=== PATIENT | female | born 1965 | race Caucasian/White ===

== ENCOUNTER 2025-06-28 10:52 | Outpatient (AMB) | payer OTHER, SELFPAY ==
--- NOTE | 2025-06-28 10:54 | MHC.OFFVIS ---
Intake Visit Reasons: 6 Months Allergies No Known Allergies Allergy (Verified 06/01/25 11:53) HPI Comments Details: She woke up with left lower back pain into L hip pain in early 06/2025. No specific trigger. Had some trouble walking for about 1 week, but has gotten better. Stopped using scapula braces, taping instead. Doing?stretches and exercises at home, using 2-pound free weights. Popping in left shoulder blade when doing exercises is better. Gabapentin 800mg three times a day and oxycodone as needed help. Sleep is a bit better. Has to sleep on hard surface with pillows in certain positions. Had consultation with surgeon and was told there was nothing that could be done. Previously completed PT. Had multiple intercostal blocks and trigger points in left subscapular and suprascapular areas every 3 months without relief, shots aggravate pain. Tried cross tape across scapulae, chest brace, and multiple other braces. Hx of ovarian cancer s/p hysterectomy in 11/2017 with some metastatic lesions involving seeding of the peritoneum in the left upper quadrant between the diaphragm, liver, and spleen. In 08/2020, she had partial hepatectomy and partial resection of this tumor. States she has been in remission since 08/2020. Has had a few bouts of chemotherapy. Has had persistent left scapular and periscapular pain that radiates into left rib cage at T5-6 level since 2018 hysterectomy, liver scraping, and removal of liver mets. She notes that her shoulder blades stick out, particularly on the left. Has some pain in the right lumbar muscles. MRI C-spine on 04/05/2020 and again on 01/18/2021 showed minimal degenerative disc disease at C4-5. MRI thoracic spine on 04/18/2020 showed mild degenerative disc disease at T3-T5. Has tried amitriptyline 10mg, gabapentin 300mg TID, methocarbamol 500mg, cyclobenzaprine 10mg, nabumetone 75mg, baclofen 10mg TID. She takes alprazolam 0.5mg TID for anxiety. Had epidural injection at C6-7, but did not have any lasting relief. Cancer surveillance is good so far. Last CT scan in 12/2023 was negative. [facility] Medical History (Updated 06/28/25 @ 11:51 by Brigitte Rondinelli, GRINDER SET UP OPERATOR) Malignant neoplasm of unspecified ovary Nerve palsy Review of Systems Const Denies chills, Denies daytime sleepiness, Reports difficulty sleeping, Denies fatigue, Denies fever(s), Denies frequent falls, Denies headache(s), Denies increased appetite, Denies poor appetite, Denies snoring, Denies weakness, Denies weight gain and Denies weight loss Eyes Denies loss of vision ENT Denies vertigo, Denies dizziness, Denies headache(s) and Reports neck pain Card Denies chest pain at rest, Denies chest pain with activity, Denies syncope, Denies leg edema, Denies palpitations, Denies dyspnea and Denies dyspnea on exertion Resp Denies cough, Denies dyspnea, Denies dyspnea on exertion and Denies snoring GI Denies abdominal pain, Denies constipation, Denies heartburn, Denies diarrhea and Denies nausea Denies urinary frequency, Denies urinary incontinence and Denies urinary urgency Musc Denies abnormal gait, Reports back pain, Reports myalgias, Reports arthralgias, Reports neck pain, Denies numbness and Denies tingling Neuro Denies abnormal gait, Denies vertigo, Denies dizziness, Denies syncope, Denies frequent falls, Denies headache(s), Denies lack of coordination, Denies loss of vision, Denies memory loss, Denies numbness, Denies Other visual disturbances, Denies restless legs, Denies seizure-like activity, Denies tingling, Denies paresthesias, Denies tremor(s) and Denies weakness Psych Reports anxiety, Reports depression, Denies auditory hallucinations, Denies memory loss and Denies visual hallucinations Endo Denies fatigue and Denies palpitations Physical Exam Const Other: General Appearance:? normal, in no acute distress. Heart:? S1, S2 normal, no murmurs. Lungs:? clear anteriorly and posteriorly. Musculoskeletal:? normal. Extremities:? no edema. Psych:? alert, oriented, cognitive function intact, cooperative with exam. Neuro Other: Abnormal Neurological Findings:?Winging of scapula bilaterally, left more than right. Weakness of serratus ant. Mental Status: alert and oriented X 3. Normal attention, orientation, memory, and affect. Cranial Nerves: Pupils are equal, round, and reactive to light. External ocular muscles are intact. Visual mireles are full, no ptosis. Face is symmetrical, no facial weakness or droop. Facial sensations are normal. Tongue protrudes in midline. Palate elevates symmetrically. Shoulder shrugging is normal Motor Examination: As above, otherwise normal muscle tone, bulk and strength. No atrophy or fasciculations. No drift of the extended upper extremities. DTR 2+. Plantars are flexor. Sensory Exam: Normal light touch, temperature, pinprick, vibration, and joint-position sensations. Rhomberg sign is absent. Coordination: No ataxia. No titubation. Gait Exam: Within normal limits. Cerebellar Signs: Bmshar-wh-expn and lhmt-wf-wjdy is normal. No dysdiadochokinesia. Extrapyramidal System: No tremor, rigidity with normal facial expressions. No bradykinesia. No bradyphrenia. Normal arm swing and posture. No propulsion or retropulsion. Speech: Normal. Results Reviewed Results Reviewed: 09/09/23 NCV/EMG UE Normal motor and sensory nerve conduction velocities in the upper extremities. Normal EMG in the left C5-T1 innervated muscles. 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 Continue oxycodone 10mg 1/2-1 tablet as needed q12h for pain #60 for 30 days (2) Low back pain: Code(s): M54.50 - Low back pain, unspecified Category: Medical Qualifiers: Chronicity: acute Back pain laterality: left Sciatica presence: without sciatica Qualified Code(s): M54.50 - Low back pain, unspecified Plan: Lumbar spine XR ordered. Orders: Orders XR lumbar spine 2-3V Today M54.50 - Low back pain, unspecified Medications: New gabapentin 800 mg PO TID 90 tabs 5RF 30 days Refilled oxycodone 0.5-1 tablet orally every 12 hours PRN; Partial Fill upon patient request. 60 tabs 0RF pain 30 days Coding Level of Care Code Est Pt Level 4 (10256) Diagnoses Nerve palsy G58.9 Acute left-sided low back pain without sciatica M54.50 Chronicity: acute Back pain laterality: left Sciatica presence: without sciatica
--- OUTSIDE RECORDS SUMMARY | 2025-06-28 11:46 | XMS_ITS | Clinical Summary ---
Author Organization [address] [facility] Address [address] [place] [address] Phone Care Team Providers Care Survey Technologist Name Role Phone Gustavo Jiang MD Primary Care Provider [phone] Allergies No known active allergies Medications ALPRAZolam (XANAX) 0.5 mg tablet Take 1 Tablet by mouth 3 times daily as needed. Active gabapentin (NEURONTIN) 800 mg tablet Take 1 Tablet by mouth 3 times daily. Active oxyCODONE (ROXICODONE) 10 mg immediate release tablet Take by mouth. Active docusate sodium (COLACE) 100 mg capsule Take 1 Capsule by mouth 2 times daily. Active albuterol HFA (PROAIR HFA ; PROVENTIL HFA ; VENTOLIN HFA) 90 mcg/actuation inhaler Inhale 2 Puffs into the lungs every 4 hours as needed. Active budesonide-form oteroL (SYMBICORT) 160-4.5 mcg/actuation inhaler Inhale 2 Puffs into the lungs 2 times daily. Active lidocaine (LIDODERM) 5 % patch Place 1 Patch onto the skin every 24 hours. Apply for no more than 12 hours in any 24 hour period. Active hydrocortisone 2.5 % cream Apply topically 1 (one) time each day. 60 g 2 5 11/11/19 26 Active Active Problems Problem Noted Date Diagnosed Date Cervical spondylosis with radiculopathy 06/16/20 24 Overview (08/17/2024): Last Assessment & Plan: Ms. Diamond describes severe pain in the left side of her neck/trapezius with radiation to the left periscapular region and the left upper extremity in a C7 and C8 distribution. She takes oxycodone, xanax and gabapentin with a modicum of relief. She has seen a chiropracter, had physical therapy, and cortisone injecitons without significant relief. On exam she has good strength. Her EMG/NCS from 09/09/23 were normal. I received reports of Cervical and Thoracic MRIs but the discs were not readable. The reports do not sound like anything that is surgical. I told her I would be in touch once I was able to review her actual films. Immunizations Name Administration Dates Next Due Influenza Quadravalent, MDCK , 0.5ml, preservative free (Flucelvax) 6mo and older 07/14/2019,08/21/2018 Influenza trivalent, 0.5mL, preservative free (Fluarix; FluLaval; Fluzone) ages 6mo and older (Afluria) 3 years and older 09/21/2015 Surgical History Surgery Date Site/Laterality Comments HYSTERECTOMY N/A PROCEDURE: HISTORICAL HYSTERECTOMY; COMMENT: 2017 OTHER SURGICAL HISTORY N/A PROCEDURE: HISTORY OTHER; COMMENT: Resection of ovarian cancer from left upper quadrant -August 2020 Medical History Medical History Date Comments Anxiety disorder DX:Anxiety diso rder Bronchial asthma DX:Bronchial as thma Ovarian cancer ([facility] V24, [facility] V28) DX:Ovarian cancer ([facility]) RLS (restless legs syndrome) DX: RLS (restless legs syndrome) Arthritis DX:Arthritis Social History Tobacco Use Types Packs/Day Years Used Date Smoking Tobacco: Every Day Smokeless Tobacco: Never Tobacco Cessation:Ready to Q uit: Not Asked; Counseling Given: Not Answered Comments Unknown Sex and Gender Information Value Date Recorded Sex Assigned at Not on file Legal Sex Female 11:39 AM EDT Gender Identity Not on file Sexual Orientation Not on file Obstetrics History Last Filed Vital Signs Vital Sign Reading Time Taken Comments Blood Pressure - - Pulse - - Temperature - - Respiratory Rate - - Oxygen Saturation - - Inhaled Oxygen Concentration - - Weight 52.2 kg (115 lb) 11/11/2024 11:20 AM EST Height 162.6 cm (5' 4 ) 11/11/2024 11:20 AM EST Body Mass Index 19.74 11/11/2024 11:20 AM EST Plan of Treatment Upcoming Encounters Date Type Department Care Team (Late st Contact Info) Description 08/08/2025 1:30 PM EDT Office Visit Orthopedic Surgery - [address] [place] [phone] Kevin Evans, ELÍAS [address] [place] [address] Health Maintenance Due Date Last Done Comments Breast Cancer Screening 1965 DTaP,Tdap,and Td Vaccines (1 - Tdap) 1986 Hepatitis B Vaccines (1 of 3 - 19+ 3-dose series) 1986 Cervical Cancer Screening: Pap Smear 02/10/1988 Pneumococcal Vaccine: 50+ Years (2 of 2 - PPSV23) 02/19/2018 12/25/2017 Cholesterol Screening (Lipid Panel) 08/15/2024 Colorectal Cancer Screening: Colonoscopy 08/15/2024 HIV Screening 08/15/2024 Hepatitis C Screening 08/15/2024 Social Influencers of Health Screening 08/15/2024 Zoster Vaccines (2 of 2) 09/23/2024 07/29/2024 Depression Screening 11/03/2024 COVID-19 Vaccine (5 - Pfizer risk 2023- season) 2025 07/10/2024, 12/27/2021, 02/13/2021, Additional history exists Influenza Vaccine (#1) 2025 , 07/14/2019, 08/21/2018, Additional history exists HIB Vaccines Aged Out No longer eligi ble based on patient's age to complete this topic HPV Vaccines Aged Out No longer eligi ble based on patient's age to complete this topic Hepatitis A Vaccines Aged Out No long er eligible based on patient's age to complete this topic IPV Vaccines Aged Out No longer eligi ble based on patient's age to complete this topic MMR Vaccines Aged Out No longer eligi ble based on patient's age to complete this topic Meningococcal ACWY Vaccine Aged Out N o longer eligible based on patient's age to complete this topic Meningococcal B Vaccine Aged Out No l onger eligible based on patient's age to complete this topic RSV Immunization Patients Under 20 months Aged Out No longer eligible based on patient's age to complete this topic Varicella Vaccines Aged Out No longer eligible based on patient's age to complete this topic Insurance [employer] Care Teams Survey Technologist Relationship Specialty Start Date End Date Gustavo Jiang MD [address] [place] [address] [address] [place], [place] PCP - General 05/31/24
--- OUTSIDE RECORDS SUMMARY | 2025-06-28 11:46 | XMS_ITS | Clinical Summary ---
Author Organization [facility] Address [address] [place] [phone] Phone Care Team Providers Care Escapement Matcher Name Role Phone Gustavo Jiang MD Primary Care Provider + Self-Referred, Patient Unavailable Unavailab le Social History Tobacco Use Types Packs/Day Years Used Date Smoking Tobacco: Never Assessed Education Answer Date Recorded Are you interested in more education? Not on marybel e 02/28/2023 Are you concerned about learning? Not on file 02/28/2023 No 02/28/2023 No 02/28/2023 Digital Access Answer Date Recorded No 03/29/2023 No 03/29/2023 No 03/29/2023 Reliable internet access at home? Not on file 03/29/2023 Device with a working camera? Not on file Comments Unknown Sex and Gender Information Value Date Recorded Sex Assigned at Not on file Legal Sex Female 4:49 PM EST Gender Identity Not on file Sexual Orientation Not on file Plan of Treatment Health Maintenance Due Date Last Done Comments Adult Td,Tdap Booster 1967 LIPID PANEL 1967 DEPRESSION SCREENING 1979 SMOKING Hx and SMOKELESS TOBACCO SCREENING 02/10/1980 HEPATITIS C SCREENING 1985 HIV ONE-TIME SCREENING (18-6 5 YEARS) 1985 PAP SMEAR 02/10/1988 MAMMOGRAM 2007 COLOGUARD 02/10/2012 COLONOSCOPY 02/10/2012 COLORECTAL CANCER SCREENING 02/10/2012 FIT TEST 02/10/2012 FOBT 02/10/2012 SIGMOIDOSCOPY 02/10/2012 VIRTUAL COLONOSCOPY 02/10/2012 PNEUMOCOCCAL VACCINES (50+ years) (1 of 1 - PCV) 2017 ZOSTER VACCINES (1 of 2) 2017 COVID-19 VACCINE ( - 2023-2 5 season) 2024 02/13/2021, 01/23/2021 HEPATITIS A VACCINES Aged Out No long er eligible based on patient's age to complete this topic HIB VACCINES Aged Out No longer eligi ble based on patient's age to complete this topic MENINGOCOCCAL VACCINES (ACWY) Aged Out No longer eligible based on patient's age to complete this topic MENINGOCOCCAL VACCINES (B) Aged Out N o longer eligible based on patient's age to complete this topic Medical Devices Not on file Insurance [employer] [facility] [address] [place] [address] [facility] [place] [address] Care Teams Escapement Matcher Relationship Specialty Start Date End Date Gustavo Jiang MD [address] [phone] PCP - General Internal Medicine 12/24/17 Self-Referred, Patient Referring Physician 12/24/17 Additional Source Comments The information contained in this document represents components of the legal health record. It is not the complete legal health record.[facility]
== END 2025-06-28 11:54 | disposition home or self-care (01) ==
LOC: HO.HSM 10:53
PROVIDERS: PCP Internal Medicine; Referring Provider Internal Medicine; Visit Provider Registered Nurse
DX: G58.9 Mononeuropathy, unspecified (principal); M54.50 Low back pain, unspecified
CPT/HCPCS: 99214

== ENCOUNTER → 2025-06-28 10:52 | Outpatient (BNVA) | payer OTHER, SELFPAY | PROVIDERS: PCP Internal Medicine; Referring Provider Internal Medicine; Visit Provider Registered Nurse | DX: M54.50 Low back pain, unspecified (principal); G58.9 Mononeuropathy, unspecified; Z79.891 Long term (current) use of opiate analgesic | CPT/HCPCS: 99212 ==